=== PATIENT | female | born 1980 | race Caucasian/White ===

== ENCOUNTER 2021-06-12 19:32 | Emergency (ER) | payer SELFPAY | END 2021-06-12 20:08 | disposition home or self-care (01) | LOC: ER1 19:32 | DX: O99.891 Other specified diseases and conditions complicating pregnancy (principal); R10.31 Right lower quadrant pain; F17.200 Nicotine dependence, unspecified, uncomplicated; Z3A.00 Weeks of gestation of pregnancy not specified | CPT/HCPCS: 99282 ==